=== PATIENT | male | born 1950 | race Caucasian/White ===

== ENCOUNTER 2019-08-15 04:37 | Inpatient (IN) | payer MEDICARE, OTHER ==
[~2019-08-15] VITALS: Ht 163 cm; Wt 82.8 kg
[~2019-08-15 04:37] MED LIST: ALPR0.5T7 PO; ESCI10TA55 PO; LEVO500T2 PO; METO50TA15 PO; PANT40TA3 PO; SERT50TA9 PO; SIMV40TA25 PO; TRZ50T PO
[2019-08-15] MEDS ORDERED: LACTATED RINGERS 1,000 ML IV ONE ×2 (04:44→06:58)
[2019-08-15] MEDS ORDERED: ACETAMINOPHEN 500 MG TAB (TYLENOL) PO PRN ×2 (04:45→08:30)
[2019-08-15 04:53] LABS: BASOPHILS % (AUTO) 0 % (0-10); EOSINOPHILS # (AUTO) 0.2 10^3/uL (0.0-0.3); EOSINOPHILS % (AUTO) 2 % (0-10); HEMATOCRIT 42 % (40-54); HEMOGLOBIN 14.1 G/DL (13.3-17.7); LYMPHOCYTES # (AUTO) 1.1 X 10^3 (1.0-4.0); LYMPHOCYTES % (AUTO) 10 % (12-44); MEAN CORPUSCULAR HEMOGLOBIN 31 PG (25-34); MEAN CORPUSCULAR HGB CONC 33 G/DL (32-36); MEAN CORPUSCULAR VOLUME 94 FL (80-99); MEAN PLATELET VOLUME 11.4 FL (7.4-10.4); MONOCYTES # (AUTO) 0.7 X 10^3 (0.0-1.0); MONOCYTES % (AUTO) 7 % (0-12); NEUTROPHILS # (AUTO) 8.2 X 10^3 (1.8-7.8); NEUTROPHILS % (AUTO) 81 % (42-75); PLATELET COUNT 139 10^3/uL (130-400); WHITE BLOOD COUNT 10.2 10^3/uL (4.3-11.0)
[2019-08-15 05:05] LABS: PROTHROMBIN TIME PATIENT 13.6 SEC (12.2-14.7)
[2019-08-15 05:12] LABS: ALANINE AMINOTRANSFERASE 22 U/L (0-55); ALBUMIN 3.9 GM/DL (3.2-4.5); ALKALINE PHOSPHATASE 95 U/L (40-136); BILIRUBIN,TOTAL 0.6 MG/DL (0.1-1.0); BUN/CREATININE RATIO 19; CARBON DIOXIDE 25 MMOL/L (21-32); CHLORIDE 105 MMOL/L (98-107); CREATININE SERUM 0.95 MG/DL (0.60-1.30); GFR ESTIMATED > 60; GLUCOSE 149 MG/DL (70-105); POTASSIUM 3.8 MMOL/L (3.6-5.0); SODIUM 141 MMOL/L (135-145)
--- NOTE | 2019-08-15 06:25 | NUR ---
VO FROM DR BARON TO NOT START IV
--- NOTE | 2019-08-15 06:26 | Diagnostic Imaging Report ---
INDICATION: Shortness of breath. Comparison is made with prior examination from 05/16/2017. FINDINGS: The heart size is normal. Mediastinum is unremarkable. There is no pleural effusion, pneumothorax or pneumonia. IMPRESSION: No acute cardiopulmonary abnormality Dictated by: Dictated on workstation # [id number]
--- NOTE | 2019-08-15 06:29 | ED General ---
General Chief Complaint: Respiratory Problems Stated Complaint: SOA Nursing Triage Note: brought in by [facility] for chills, cough, soa Nursing Sepsis Screen: Possible Severe Sepsis Risk Source of Information: Patient, EMS Exam Limitations: No Limitations History of Present Illness Date Seen by Provider: Aug 15, 2019 Time Seen by Provider: 04:46 Initial Comments Here chills, cough and shortness of air the last hour and a half. EMS summons due to shortness of breath. They noted that his O2 saturations were 88% on room air. Improved with high flow O2. Noted to be tachycardic with shaking chills. He is febrile. Reports that he's had a cough for the last few weeks and was seen by his provider last Friday. Thought to have sinusitis at that time but is not on antibiotics. Timing/Duration: 1-3 Hours, Getting Worse, Other (cough for 2 weeks) Severity: Moderate, Severe Associated Systoms: No Chest Pain; Cough, Fever/Chills; No Nausea/Vomiting; Shortness of Air, Weakness Allergies and Home Medications Allergies Coded Allergies: No Known Drug Allergies (Unverified , 05/16/17) Home Medications Metoprolol Tartrate 50 Mg Tablet, 50 MG PO DAILY, (Reported) Simvastatin 40 Mg Tablet, 40 MG PO HS, (Reported) Patient Home Medication List Home Medication List Reviewed: Yes Review of Systems Review of Systems Constitutional: see HPI, chills, fever EENTM: nose congestion; No throat pain Respiratory: cough, short of breath; No wheezing Cardiovascular: No chest pain, No edema Gastrointestinal: No nausea, No vomiting Genitourinary: no symptoms reported Musculoskeletal: no symptoms reported Skin: no symptoms reported Psychiatric/Neurological: No Symptoms Reported All Other Systems Reviewed Negative Unless Noted: Yes Past Gtnchhw-Iuwfzl-Zjfqgr Hx Past Med/Social Hx: Reviewed Nursing Past Med/Soc Hx Patient Social History Alcohol Use: Denies Use Recreational Drug Use: No Smoking Status: Former Smoker Former Smoker, Quit: Jul 07, 2014 2nd Hand Smoke Exposure: No Recent Foreign Travel: No Contact w/Someone Who Travel: No Recent Infectious Disease Expo: No Recent Hopitalizations: No Physical Abuse: No Sexual Abuse: No Mistreated: No Fear: No Immunizations Up To Date Tetanus Booster (TDap): Unknown Seasonal Allergies Seasonal Allergies: No Past Medical History Surgeries: No Respiratory: No Cardiac: Yes High Cholesterol, Hypertension Neurological: No Reproductive Disorders: No Sexually Transmitted Disease: No HIV/AIDS: No Genitourinary: No Gastrointestinal: Yes Gastroesophageal Reflux Musculoskeletal: No Endocrine: No HEENT: Yes Cataract Hearing Impairment: Hard of Hearing Cancer: No Psychosocial: Yes Anxiety Integumentary: No Blood Disorders: No Family Medical History Reviewed Nursing Family Hx No Pertinent Family Hx Physical Exam-Suspected Sepsis Physical Exam Vital Signs Vital Signs - First Documented Capillary Refill : Less Than 3 Seconds Blood Pressure Mean: 108 Height, Weight, BMI Height: 5'6" Weight: 162lbs. 3.0oz. [id number]; 30.00 BMI Method:Stated General Appearance: WD/WN, Mild Distress HEENT: PERRL/EOMI, Pharynx Normal Neck: Non Tender, Supple Respiratory: Lungs Clear, No Accessory Muscle Use, Other (tachypnea) Cardiovascular: No Murmur, Tachycardia Gastrointestinal: Non Tender, Soft Back: Normal Inspection, No CVA Tenderness, No Vertebral Tenderness Extremity: Normal Inspection, Normal Range of Motion Neurologic/Psychiatric: Alert, Oriented x3, Other (intermittent rigors shaking) Skin: warm/dry Focused Exam Lactate Level 08/15/19 04:40: Lactic Acid Level 3.33*H Lactic Acid Level Laboratory Tests Test 08/15/19 04:40 Lactic Acid Level 3.33 MMOL/L (0.50-2.00) *H Progress/Results/Core Measures Suspected Sepsis Recent Fever Within 48 Hours: Yes Infection Criteria Present: Suspected New Infection New/Unexplained Altered Menta: No Sepsis Screen: Possible Severe Sepsis Risk SIRS Temperature: Pulse: 117 Respiratory Rate: 29 Laboratory Tests 08/15/19 04:40: White Blood Count 10.2 Blood Pressure 144 /91 Mean: 108 08/15/19 04:40: Lactic Acid Level 3.33*H Laboratory Tests 08/15/19 04:40: Creatinine 0.95, INR Comment 1.0, Platelet Count 139, Total Bilirubin 0.6 Results/Orders Lab Results Laboratory Tests Test 08/15/19 04:40 Range/Units White Blood Count 10.2 4.3-11.0 10^3/uL Red Blood Count 4.51 4.35-5.85 10^6/uL Hemoglobin 14.1 13.3-17.7 G/DL Hematocrit 42 40-54 % Mean Corpuscular Volume 94 80-99 FL Mean Corpuscular Hemoglobin 31 25-34 PG Mean Corpuscular Hemoglobin Concent 33 32-36 G/DL Red Cell Distribution Width 14.0 10.0-14.5 % Platelet Count 139 130-400 10^3/uL Mean Platelet Volume 11.4 H 7.4-10.4 FL Neutrophils (%) (Auto) 81 H 42-75 % Lymphocytes (%) (Auto) 10 L 12-44 % Monocytes (%) (Auto) 7 0-12 % Eosinophils (%) (Auto) 2 0-10 % Basophils (%) (Auto) 0 0-10 % Neutrophils # (Auto) 8.2 H 1.8-7.8 X 10^3 Lymphocytes # (Auto) 1.1 1.0-4.0 X 10^3 Monocytes # (Auto) 0.7 0.0-1.0 X 10^3 Eosinophils # (Auto) 0.2 0.0-0.3 10^3/uL Basophils # (Auto) 0.0 0.0-0.1 10^3/uL Prothrombin Time 13.6 12.2-14.7 SEC INR Comment 1.0 0.8-1.4 Activated Partial Thromboplast Time 27 24-35 SEC Sodium Level 141 135-145 MMOL/L Potassium Level 3.8 3.6-5.0 MMOL/L Chloride Level 105 98-107 MMOL/L Carbon Dioxide Level 25 21-32 MMOL/L Anion Gap 11 5-14 MMOL/L Blood Urea Nitrogen 18 7-18 MG/DL Creatinine 0.95 0.60-1.30 MG/DL Estimat Glomerular Filtration Rate > 60 BUN/Creatinine Ratio 19 Glucose Level 149 H 70-105 MG/DL Lactic Acid Level 3.33 *H 0.50-2.00 MMOL/L Calcium Level 9.0 8.5-10.1 MG/DL Corrected Calcium 9.1 8.5-10.1 MG/DL Total Bilirubin 0.6 0.1-1.0 MG/DL Aspartate Amino Transf (AST/SGOT) 16 5-34 U/L Alanine Aminotransferase (ALT/SGPT) 22 0-55 U/L Alkaline Phosphatase 95 40-136 U/L Total Protein 7.0 6.4-8.2 GM/DL Albumin 3.9 3.2-4.5 GM/DL Micro Results Microbiology 08/15/19 Influenza Types A,B Antigen (ANUP) - Final, Complete My Orders Orders - ROBERTO BARON MD Cbc With Automated Diff (08/15/19 04:44) Comprehensive Metabolic Panel (08/15/19 04:44) Blood Culture (08/15/19 04:44) Sputum Culture (08/15/19 04:44) Urinalysis (08/15/19 04:44) Urine Culture (08/15/19 04:44) Protime With Inr (08/15/19 04:44) Partial Thromboplastin Time (08/15/19 04:44) Chest 1 View, Ap/Pa Only (08/15/19 04:44) Acetaminophen Tablet (Tylenol Tablet) (08/15/19 04:45) Ed Iv/Invasive Line Start (08/15/19 04:44) Ekg Tracing (08/15/19 04:44) Vital Signs Adult Sepsis Patie Q15M (08/15/19 04:44) O2 (08/15/19 04:44) Remove Rings In Anticipation O (08/15/19 04:44) Lactic Acid Analyzer (08/15/19 04:44) Influenza A And B Antigens (08/15/19 04:44) Lactated Ringers (Lr 1000 Ml Iv Solution (08/15/19 04:44) Ceftriaxone For Iv Use (Rocephin For I (08/15/19 06:30) Azithromycin Injection (Zithromax Inject (08/15/19 06:30) Medications Given in ED Current Medications Medications Dose Ordered Sig/Brandon Route Start Time Stop Time Status Last Admin Dose Admin Acetaminophen 1,000 mg ONCE PRN PO 08/15/19 04:45 08/15/19 04:51 DC 08/15/19 04:51 1,000 MG Azithromycin 500 mg/Sodium Chloride 250 ml @ 250 mls/hr ONCE ONCE IV 08/15/19 06:30 08/15/19 07:29 08/15/19 06:47 250 MLS/HR Ceftriaxone Sodium 1000 mg/ Sterile Water 10 ml @ 200 mls/hr ONCE ONCE IV 08/15/19 06:30 08/15/19 06:32 DC 08/15/19 06:47 200 MLS/HR Lactated Ringer's 1,000 ml @ 0 mls/hr Q0M ONCE IV 08/15/19 04:44 08/15/19 04:46 DC 08/15/19 04:50 0 MLS/HR Vital Signs/I&O 08/15/19 08/15/19 08/15/19 08/15/19 04:39 04:39 04:51 05:06 Temp 38.9 38.9 38.6 Pulse 128 117 Resp 20 29 B/P (MAP) 161/107 (125) 144/91 Pulse Ox 97 97 97 O2 Delivery Nasal Cannula Nasal Cannula Nasal Cannula O2 Flow Rate 4.00 4.00 4.00 08/15/19 06:50 Temp 38.4 Pulse 112 Resp 22 B/P (MAP) 115/65 (82) Pulse Ox 98 O2 Delivery Nasal Cannula O2 Flow Rate 4.00 Capillary Refill : Less Than 3 Seconds Blood Pressure Mean: 108 Progress Note : Progress Note Seen and evaluated. Sepsis protocol initiated. LR 1 L bolus and Tylenol 1 g by mouth. Monitor patient. 0630: Evaluation as above. Lactic acid is elevated at 3.3. Chest x-ray read as negative but I do have concerns about right lower lobe pneumonia especially in the setting of temperature of 102 100 shaking with difficulty breathing, tachycardia and hypoxia. He is requiring 3-4 L of oxygen via nasal cannula to keep sats greater than 92%. Rocephin 1 g IV and azithromycin 500 mg IV ordered. To be admitted. 0650: I did discuss the case with Dr. Angel Metz, on-call for Dr. Roque. He accepts patient for admission, inpatient status. We will give another liter of LR now. Patient's lactic acid was elevated at 3.3. While he meets sepsis a do not believe he re quires high-volume fluid resuscitation. That being said his heart rate still is greater than 100 so we will give the second liter of fluid as I do believe he needs that. We will continue gentle hydration and antibiotics. Patient is feeling better now after Tylenol administration. Radiology read x-ray as negative but I do have concerns about right lower lobe pneumonia and we will tr eat as such due to clinical concerns. Findings concerns discussed with patient and family who agree with the plan. Diagnostic Imaging Diagonstic Imaging: Xray Plain Films/CT/US/NM/MRI: chest Comments [facility]. [place], [place] NAME: HEYDI ALY [facility] REC#: [id number] PT STATUS: REG ER : 1950 PHYSICIAN: ROBERTO BARON MD ADMIT DATE: 08/15/19/ER Draft Date of Exam:08/15/19 CHEST 1 VIEW, AP/PA ONLY INDICATION: Shortness of breath. Comparison is made with prior examination from 05/16/2017. FINDINGS: The heart size is normal. Mediastinum is unremarkable. There is no pleural effusion, pneumothorax or pneumonia. IMPRESSION: No acute cardiopulmonary abnormality Dictated on workstation # [id number] Dict: 08/15/19622 Trans: 08/15/19 0626 JAMES [id number] Interpreted by: UBALDO REYNA MD Electronically signed by: Reviewed: Reviewed by Me Departure Communication (Admissions) Time/Spoke to Admitting Phy: 06:49 Impression Primary Impression: Right lower lobe pneumonia Qualified Codes: J18.1 - Lobar pneumonia, unspecified organism Additional Impression: Sepsis Qualified Codes: A41.9 - Sepsis, unspecified organism Disposition: ADMITTED INPATIENT Condition: Stable Admissions Decision to Admit Reason: Admit from ER (General) Decision to Admit/Date: Aug 15, 2019 Time/Decision to Admit Time: 06:30 Departure-Patient Inst. Referrals: BERTRAND ROQUE DO (PCP/Family) Primary Care Physician ROBERTO BARON MD Aug 15, 2019 06:29
[2019-08-15] MEDS ORDERED: cefTRIAXone FOR IV USE 1,000 MG in WATER (STERILE) FOR INJECTION 10 ML IV ONE (06:30)
[2019-08-15] MEDS ORDERED: AZITHROMYCIN INJECTION 500 MG in NS (IVPB) 250 ML IV ONE (06:30)
[2019-08-15 06:50] VITALS: BP 115/65
--- NOTE | 2019-08-15 07:15 | NUR ---
02 TURNED DOWN TO 2 L PER NC PER [address] RODRIGUEZ ORDER.
--- NOTE | 2019-08-15 07:23 | NUR ---
CALLED TO GIVE REPORT VISCOSITY INSPECTOR VENKATA WILL HAVE NURSE CALL BACK.
[2019-08-15 08:00] VITALS: BP 132/70
[2019-08-15] MEDS: LACTATED RINGERS 1,000 ML IV SCH ×2 (10:28→18:50)
--- NOTE | 2019-08-15 11:39 | History & Physical ---
History of Present Illness History of Present Illness Reason for visit/HPI 69 yo M admitted for sepsis due to RLL pneumonia. Significant other reports he had been coughing for last least a month. Patient noted the rigors/chills around 330am. He put his clothes on to warm up. Significant other noted he was clammy and shaking bad so she called EMS. He was placed on oxygen and this brought him from 88% into the 90s. He endorses a fever and was found to be above 38C in the ER. Lactic acid was 3.3- He has received 2L lactated ringers. Blood pressure is not hypotensive. Pulse was >100. He is coughing up phlegm but is not putting forth a good cough effort. Patient was admitted to 4th floor to further evaluation. He has received rocephin and azithromycin. I agree with ER that RLL pneumonia is present on CXR. He has history of anxiety, GERD, htn. He quit smoking at least 3 years ago. He is retired from the [employer] and then retired from [employer]. Date of Admission Aug 15, 2019 at 06:50 Date Seen by a Provider: Aug 15, 2019 Time Seen by a Provider: 11:20 I consulted on this patient on 08/15/19 11:34 Attending Physician Christopher Dumas DO Admitting Physician Christopher Dumas DO Consult Allergies and Home Medications Allergies Coded Allergies: No Known Drug Allergies (Unverified , 05/16/17) Home Medications Metoprolol Tartrate 50 Mg Tablet, 50 MG PO DAILY, (Reported) Simvastatin 40 Mg Tablet, 40 MG PO HS, (Reported) Patient Home Medication List Home Medication List Reviewed: Yes Past Hvfzcfv-Hmwqcg-Lpabgs Hx Patient Social History Employed/Student: retired Alcohol Use: Denies Use Recreational Drug Use: No Smoking Status: Former Smoker Former Smoker, Quit: Jul 07, 2014 2nd Hand Smoke Exposure: No Recent Foreign Travel: No Contact w/other who traveled: No Recent Hopitalizations: No Recent Infectious Disease Expo: No Immunizations Up To Date Tetanus Booster (TDap): Unknown Seasonal Allergies Seasonal Allergies: No Surgeries No Respiratory No Cardiovascular Yes High Cholesterol, Hypertension Neurological No Reproductive System Hx Reproductive Disorders: No Sexually Transmitted Disease: No HIV/AIDS: No Genitourinary No Gastrointestinal Yes Gastroesophageal Reflux Musculoskeletal No Endocrine History of Endocrine Disorders: No HEENT History of HEENT Disorders: Yes HEENT Disorders: Cataract Hearing Impairment: Hard of Hearing Cancer No Psychosocial History of Psychiatric Problem: Yes Behavioral Health Disorders: Anxiety Integumentary History of Skin or Integumenta: No Blood Transfusions History of Blood Disorders: No Family Medical History Significant Family History: No Pertinent Family Hx Review of Systems Review of Systems General: Chills, Fatigue HEENT: Head Aches; No Visual Changes, No Ear Pain, No Dysphasia, No Sinus Congestion, No Post Nasal Drip, No Sore Throat Pulmonary: Dyspnea, Cough Cardiovascular: No: Chest Pain, Palpitations, Orthopnea Gastrointestinal: No: Nausea, Vomiting, Abdominal Pain Genitourinary: No Dysuria Neurological: Weakness All Other Systems Reviewed All Other Systems Reviewed: Yes Physical Exam Vital Signs Vital Signs - First Documented Capillary Refill : Less Than 3 Seconds Vital Signs Date Time Temp Pulse Resp B/P (MAP) Pulse Ox O2 Delivery O2 Flow Rate FiO2 08/15/19 08:10 98 Nasal Cannula 2.00 08/15/19 08:00 37.0 101 20 132/70 (90) 98 Room Air 08/15/19 07:53 37.6 100 18 111/71 97 Nasal Cannula 2.00 08/15/19 06:50 38.4 112 22 115/65 (82) 98 Nasal Cannula 4.00 08/15/19 05:06 38.6 117 29 144/91 97 Nasal Cannula 4.00 08/15/19 04:51 38.9 08/15/19 04:39 97 Nasal Cannula 4.00 08/15/19 04:39 38.9 128 20 161/107 (125) 97 Nasal Cannula 4.00 I & O 08/15/19 07:00 Intake Total 1010 ml Balance 1010 ml Height, Weight, BMI Height: 5'6" Weight: 162lbs. 3.0oz. 73.280206ns; 30.00 BMI Method:Stated General Appearance: WD/WN, Mild Distress HEENT: PERRL/EOMI Neck: Non Tender, Supple Respiratory: Chest Non Tender, No Accessory Muscle Use, Decreased Breath Sounds (left base > right base) Cardiovascular: Regular Rate, Rhythm, No Edema Gastrointestinal: Non Tender, Soft Rectal: Deferred Back: Normal Inspection Extremity: Normal Capillary Refill, Normal Inspection, Non Tender Neurologic/Psychiatric: Alert, Oriented x3, No Motor/Sensory Deficits, Normal Mood/Affect Skin: Warm/Dry Assessment/Plan Assessment/Plan Admission Dx acute hypoxic respiratory distress due to RLL Pneumonia Sepsis Admission Status: Inpatient Order (span 2 midnights) Reason for Inpatient Admission: acute hypoxic respiratory distress due to RLL Pneumonia resulting in sepsis- appears this has been brewing for awhile- as he has had a cough and respiratory complaints for over a month. Expect him to be inpatient for over 2 midnights in getting him off oxygen and correcting his hypoxic respiratory distress. Prior to discharge- I would like him to be fever free [id number] while on oral antibiotics. Assessment and Plan 08/15/2019- admitted - continue rocephin, azithromycin for his pneumonia -continue IVF for sepsis, lactic acidosis -maintain oxygen saturation >92% as the hypoxia is contributing to his lactic acidosis. -trending lactic acid. -recheck labs in AM. DVT ppx- lovenox Dispo: expect him to improve daily. Problems: (1) Sepsis due to pneumonia (2) Acute respiratory failure with hypoxia Assessment & Plan: MAT protocol (3) Right lower lobe pneumonia Qualifiers: Qualified Codes: J18.1 - Lobar pneumonia, unspecified organism (4) Sepsis Qualifiers: Qualified Codes: A41.9 - Sepsis, unspecified organism (5) Hyperlipidemia Assessment & Plan: continue statin (6) Lactic acidosis (7) HTN (hypertension) Qualifiers: Qualified Codes: I10 - Essential (primary) hypertension Assessment & Plan: continue metoprolol- monitor blood pressure though as he has sepsis- so we will not pursue tight blood pressure control. Clinical Quality Measures DVT/VTE Risk/Contraindication: Risk Factor Score Per Nursin RFS Level Per Nursing on Admit: 4+=Very High GUSTAVO SOTO MD Aug 15, 2019 11:39
[2019-08-15 11:49] VITALS: BP 132/70
[2019-08-15 12:00] VITALS: BP 128/64
[2019-08-15] MEDS ORDERED: RT-ALBUTEROL/IPRATROPIUM 3 ML (DUONEB) VIAL INH PRN (12:00)
[2019-08-15] MEDS: meTOprolol TARTRATE 50 MG (LOPRESSOR) TAB PO SCH (12:40)
[2019-08-15] MEDS: ENOXAPARIN 40 MG/0.4 ML (LOVENOX) SYR SC SCH (12:40)
[2019-08-15] MEDS ORDERED: FLU QUADRIvalent (5+ YOA) 2019-2020 (AFLURIA) 0.5 ML IM ONE (13:30)
[2019-08-15] MEDS: RT-ALBUTEROL/IPRATROPIUM 3 ML (DUONEB) VIAL INH SCH ×2 (15:45→21:23)
[2019-08-15 16:00] VITALS: BP 131/70
[2019-08-15 20:00] VITALS: BP 150/69
[2019-08-15] MEDS: SIMvastatin 40 MG (ZOCOR) TAB PO SCH (21:00)
[2019-08-16] VITALS (7 sets, daily range): BP systolic 122–166; BP diastolic 64–87
[2019-08-16] MEDS: RT-ALBUTEROL/IPRATROPIUM 3 ML (DUONEB) VIAL INH SCH ×5 (02:00→21:22)
[2019-08-16] MEDS: cefTRIAXone 1,000 MG/SWFI 10 ML IV PUSH IV SCH ×2 (07:54)
[2019-08-16 07:55] LABS: BASOPHILS % (AUTO) 0 % (0-10); EOSINOPHILS # (AUTO) 0.1 10^3/uL (0.0-0.3); EOSINOPHILS % (AUTO) 1 % (0-10); HEMATOCRIT 39 % (40-54); HEMOGLOBIN 12.8 G/DL (13.3-17.7); LYMPHOCYTES % (AUTO) 15 % (12-44); MEAN CORPUSCULAR HEMOGLOBIN 31 PG (25-34); MEAN CORPUSCULAR HGB CONC 33 G/DL (32-36); MEAN CORPUSCULAR VOLUME 95 FL (80-99); MEAN PLATELET VOLUME 11.2 FL (7.4-10.4); MONOCYTES # (AUTO) 0.5 X 10^3 (0.0-1.0); MONOCYTES % (AUTO) 8 % (0-12); NEUTROPHILS # (AUTO) 4.9 X 10^3 (1.8-7.8); NEUTROPHILS % (AUTO) 75 % (42-75); PLATELET COUNT 129 10^3/uL (130-400); RED CELL DISTRIBUTION WIDTH 14.3 % (10.0-14.5); WHITE BLOOD COUNT 6.6 10^3/uL (4.3-11.0)
--- NOTE | 2019-08-16 07:59 | NUR ---
LR stopped during ceftrioxone administration. Pt flushed before and after med given
[2019-08-16] MEDS: LACTATED RINGERS 1,000 ML IV SCH ×4 (08:03→19:53)
--- NOTE | 2019-08-16 08:03 | Progress Note ---
Subjective Time Seen by a Provider: 08:01 Subjective/Events-last exam Patient feeling better and doing better. Patient not short of the of this morning. Lab tests not on chart yet Focused Exam Lactate Level 08/15/19 07:06: Lactic Acid Level 2.23*H 08/15/19 09:14: Lactic Acid Level 2.37*H 08/15/19 11:18: Lactic Acid Level 2.69*H Objective Exam Vital Signs Date Time Temp Pulse Resp B/P (MAP) Pulse Ox O2 Delivery O2 Flow Rate FiO2 08/16/19 06:35 36.6 78 161/87 (111) 18 Room Air 08/16/19 04:00 36.7 92 18 122/74 (90) 91 Room Air 4.00 4.00 08/16/19 02:01 91 Room Air 08/16/19 00:00 36.7 92 18 122/74 (90) 94 Room Air 08/15/19 21:23 98 Nasal Cannula 4.00 08/15/19 21:13 36.6 08/15/19 20:43 36.6 08/15/19 20:00 36.6 89 18 150/69 (96) 98 Nasal Cannula 4.00 08/15/19 20:00 98 Nasal Cannula 4.00 08/15/19 16:00 36.4 88 20 131/70 (90) 100 Nasal Cannula 4.00 08/15/19 15:50 96 Nasal Cannula 4.00 08/15/19 12:00 36.8 99 20 128/64 (85) 97 Room Air 08/15/19 11:49 37.0 101 98 08/15/19 08:10 98 Nasal Cannula 2.00 I & O 08/16/19 07:00 Intake Total 2850 ml Output Total 2775 ml Balance 75 ml Capillary Refill : Less Than 3 Seconds General Appearance: No Apparent Distress, WD/WN HEENT: Normal ENT Inspection Neck: Full Range of Motion, Non Tender Respiratory: Lungs Clear, No Accessory Muscle Use, No Respiratory Distress Cardiovascular: Regular Rate, Rhythm, No Murmur Gastrointestinal: non tender, soft Results Lab Laboratory Tests 08/16/19 07:44 Laboratory Tests 08/15/19 09:14: Lactic Acid Level 2.37*H 08/15/19 11:18: Lactic Acid Level 2.69*H 08/16/19 07:44: White Blood Count 6.6, Red Blood Count 4.12L, Hemoglobin 12.8L, Hematocrit 39L, Mean Corpuscular Volume 95, Mean Corpuscular Hemoglobin 31, Mean Corpuscular Hemoglobin Concent 33, Red Cell Distribution Width 14.3, Platelet Count 129L, M israel Platelet Volume 11.2H, Neutrophils (%) (Auto) 75, Lymphocytes (%) (Auto) 15, Monocytes (%) (Auto) 8, Eosinophils (%) (Auto) 1, Basophils (%) (Auto) 0, Neutrophils # (Auto) 4.9, Lymphocytes # (Auto) 1.0, Monocytes # (Auto) 0.5, Eosinophils # (Auto) 0.1, Basophils # (Auto) 0.0 Microbiology 08/15/19 Influenza Types A,B Antigen (ANUP) - Final, Complete Assessment/Plan Assessment/Plan Assess & Plan/Chief Complaint Right lower lobe pneumonia. Sepsis. Patient improving. Elevated lactic acid Clinical Quality Measures DVT/VTE Risk/Contraindication: Risk Factor Score Per Nursin RFS Level Per Nursing on Admit: 4+=Very High BERTRAND ROQUE DO Aug 16, 2019 08:03
[2019-08-16 08:16] LABS: BILIRUBIN,TOTAL 0.7 MG/DL (0.1-1.0); BUN/CREATININE RATIO 11; CARBON DIOXIDE 24 MMOL/L (21-32); CHLORIDE 107 MMOL/L (98-107); GFR ESTIMATED > 60; GLUCOSE 126 MG/DL (70-105); POTASSIUM 3.8 MMOL/L (3.6-5.0); SODIUM 139 MMOL/L (135-145)
[2019-08-16 08:17] LABS: ALANINE AMINOTRANSFERASE 16 U/L (0-55); ALBUMIN 3.8 GM/DL (3.2-4.5); ALKALINE PHOSPHATASE 72 U/L (40-136); TOTAL PROTEIN 6.8 GM/DL (6.4-8.2)
[2019-08-16] MEDS: meTOprolol TARTRATE 50 MG (LOPRESSOR) TAB PO SCH (08:45)
[2019-08-16] MEDS ORDERED: AZITHROMYCIN 500 MG/NS 250 ML IVPB IV SCH ×2 (09:00)
--- NOTE | 2019-08-16 09:21 | Diagnostic Imaging Report ---
INDICATION: Pneumonia. Comparison is made with prior examination from 08/15/2019 FINDINGS: Heart size is normal. Mediastinum is unremarkable. There is patchy right basilar infiltrate. There is no pleural effusion or pneumothorax. IMPRESSION: Questionable patchy right basilar infiltrate, otherwise unremarkable. Dictated by: Dictated on workstation # [id number]
--- NOTE | 2019-08-16 10:18 | NUR ---
patient does not remember RT waking him up in the middle of the night; patient and his states that when patient is woke up he is disoriented and does not remember anything that goes on at that time. Make sure patient gets his 0300 breathing tx's per patients request.
--- NOTE | 2019-08-16 10:40 | Pulmonary Consultation ---
History of Present Illness History of Present Illness Date Seen by Provider: Aug 16, 2019 Time Seen by Provider: 10:40 Date of Admission History of Present Illness 69yo yo presented to ED secondary to worsening SOB, productive cough fever, and chills. While in the ED pt was noted to have hypoxia with Sp02 88% on RA. SOB and coughing has been progressive over the last 3wks. PT was admitted to 4th floor with rocephin and azithromycin. I am consulted for pulmonary management. Allergies and Home Medications Allergies Coded Allergies: No Known Drug Allergies (Unverified , 05/16/17) Home Medications Escitalopram Oxalate 10 Mg Tablet, 10 MG PO DAILY, (Reported) Metoprolol Tartrate 50 Mg Tablet, 50 MG PO DAILY, (Reported) Pantoprazole Sodium 40 Mg Tablet.dr, 40 MG PO DAILY, (Reported) Simvastatin 40 Mg Tablet, 40 MG PO HS, (Reported) Past Lzejqyq-Hmzayh-Xzzoqk Hx Past Med/Social Hx: Reviewed Nursing Past Med/Soc Hx Patient Social History Alcohol Use: Denies Use Recreational Drug Use: No Smoking Status: Former Smoker Former Smoker, Quit: Jul 07, 2014 2nd Hand Smoke Exposure: No Recent Foreign Travel: No Contact w/Someone Who Travel: No Recent Infectious Disease Expo: No Recent Hopitalizations: No Physical Abuse: No Sexual Abuse: No Mistreated: No Fear: No Immunizations Up To Date Tetanus Booster (TDap): Unknown Seasonal Allergies Seasonal Allergies: No Past Medical History Surgeries: No Respiratory: No Cardiac: Yes High Cholesterol, Hypertension Neurological: No Reproductive Disorders: No Sexually Transmitted Disease: No HIV/AIDS: No Genitourinary: No Gastrointestinal: Yes Gastroesophageal Reflux Musculoskeletal: No Endocrine: No HEENT: Yes Cataract Hearing Impairment: Hard of Hearing Cancer: No Psychosocial: Yes Anxiety Integumentary: No Blood Disorders: No Family Medical History Reviewed Nursing Family Hx No Pertinent Family Hx Review of Systems Time Seen by Provider: 12:16 Constitutional: Fever, Chills, Sweats, Weakness, Malaise, Other Eyes: No: Pain, Vision change, Conjunctivae inflammation, Eyelid inflammation, Other, Redness ENT: Nose congestion; No: Ear pain, Ear discharge, Nose pain, Nose discharge, Mouth pain, Mouth swelling, Throat pain, Throat swelling, Other Respiratory: Cough, Shortness of breath, SOB with excertion, Wheezing, Sputum; No: Hemoptysis Cardiovascular: Palpitations, Paroxysmal Noc. Dyspnea; No: Chest Pain, Orthopnea, Edema, Lt Headedness, Other Gastrointestinal: No: Nausea, Vomiting, Abdominal Pain, Diarrhea, Constipation, Melena, Hematochezia, Other Sepsis Event Evaluation Height, Weight, BMI Height: 5'6" Weight: 162lbs. 3.0oz. 73.668890oj; 30.00 BMI Method:Stated Exam Exam Vital Signs Date Time Temp Pulse Resp B/P (MAP) Pulse Ox O2 Delivery O2 Flow Rate FiO2 08/16/19 10:03 98 Room Air 08/16/19 08:00 98 Nasal Cannula 4.00 08/16/19 08:00 36.0 94 18 156/79 (104) 96 Nasal Cannula 4.00 08/16/19 06:35 36.6 78 161/87 (111) 18 Room Air 08/16/19 04:00 36.7 92 18 122/74 (90) 91 Room Air 4.00 4.00 08/16/19 02:01 91 Room Air 08/16/19 00:00 36.7 92 18 122/74 (90) 94 Room Air 08/15/19 21:23 98 Nasal Cannula 4.00 08/15/19 21:13 36.6 08/15/19 20:43 36.6 08/15/19 20:00 36.6 89 18 150/69 (96) 98 Nasal Cannula 4.00 08/15/19 20:00 98 Nasal Cannula 4.00 08/15/19 16:00 36.4 88 20 131/70 (90) 100 Nasal Cannula 4.00 08/15/19 15:50 96 Nasal Cannula 4.00 08/15/19 12:00 36.8 99 20 128/64 (85) 97 Room Air 08/15/19 11:49 37.0 101 98 I & O 08/16/19 07:00 Intake Total 2850 ml Output Total 2775 ml Balance 75 ml Height & Weight Height: 5'6" Weight: 162lbs. 3.0oz. 73.422133da; 30.00 BMI Method:Stated General Appearance: No Apparent Distress, WD/WN HEENT: Normal ENT Inspection Neck: Full Range of Motion, Non Tender Respiratory: Lungs Clear, No Accessory Muscle Use, No Respiratory Distress Cardiovascular: Regular Rate, Rhythm, No Murmur Capillary Refill: Less Than 3 Seconds Gastrointestinal: non tender, soft Extremity: Normal Capillary Refill, Normal Inspection, Non Tender Neurologic/Psychiatric: Alert, Oriented x3, No Motor/Sensory Deficits, Normal Mood/Affect Skin: Warm/Dry Results Lab Laboratory Tests 08/15/19 04:40 08/16/19 07:44 Assessment/Plan Assessment/Plan RLL pneumonia -Rocephin and azithromycin -IVF -Check CT of chest Metabolic lactic acidosis -Increase IVF and give bolus -Recheck Quit smoking 3 yrs ago JULIA SÁNCHEZ DO Aug 16, 2019 10:40
[2019-08-16] MEDS ORDERED: LACTATED RINGERS 1,000 ML IV SCH (10:45)
[2019-08-16 11:02] LABS: MAGNESIUM 1.6 MG/DL (1.6-2.4); PHOSPHORUS 2.4 MG/DL (2.3-4.7)
[2019-08-16] MEDS ORDERED: LACTATED RINGERS 500 ML IV SCH (11:15)
[2019-08-16] MEDS: ENOXAPARIN 40 MG/0.4 ML (LOVENOX) SYR SC SCH (11:18)
--- NOTE | 2019-08-16 11:22 | NUR ---
LR 500mL bolus infusing
--- NOTE | 2019-08-16 11:57 | NUR ---
SPOKE WITH THE PT WELL GOING THRU THE EXT MED HISTORY TO COMPLETE THE MED REC. PT WAS ABLE TO TELL ME HOW/WHEN HE TAKES EACH MEDICATION AND THAT MATCHED DIRECTIONS AND FILL DATES IN THE EXT MED HISTORY. PT DENIES USING ANY OTC PRODUCTS.
[2019-08-16 13:34] LABS: BILIRUBIN,URINE NEGATIVE (NEGATIVE); CLARITY,URINE CLEAR; COLOR,URINE YELLOW; GLUCOSE, URINE (UA) NEGATIVE (NEGATIVE); KETONES,URINE NEGATIVE (NEGATIVE); LEUKOCYTE ESTERASE ,URINE NEGATIVE (NEGATIVE); NITRITE,URINE NEGATIVE (NEGATIVE); PROTEIN,URINE NEGATIVE (NEGATIVE)
[2019-08-16] MEDS ORDERED: IOHEXOL 350 MG/ML 100 ML (OMNIPAQUE 350) VIAL IV ONE (13:45)
[2019-08-16] MEDS ORDERED: NS 100 ML (IVPB) BAG IV ONE (13:45)
[2019-08-16] MEDS ORDERED: DIATRIZOATE MEGLUM/SODIUM 37% 120 ML (GASTROGRAFIN) PO ONE (13:45)
[2019-08-16 13:52] LABS: BACTERIA,URINE NEGATIVE /HPF; RBC,URINE RARE /HPF
--- NOTE | 2019-08-16 14:56 | Diagnostic Imaging Report ---
EXAMINATION: CT Chest, Abdomen and Pelvis with intravenous contrast. TECHNIQUE: Multiple contiguous axial images were obtained through the chest, abdomen and pelvis after the uneventful administration of intravenous contrast. All CT scans use one or more of the following dose optimizing techniques: automated exposure control, MA and/or KvP adjustment based on a patient size and exam type, or iterative reconstruction. HISTORY: Fever and chills. COMPARISON: 05/03/2016. FINDINGS: There is a tiny right pleural effusion with overlying atelectasis. There is a small amount of mucus in the trachea. No edema or pneumonia. Small area of scarring is seen in the right upper lobe. No pleural effusion. No pneumothorax. No suspicious nodules. Heart size is normal. No pericardial effusion. Aorta is normal in caliber. There is no axillary or supraclavicular lymphadenopathy. There is no mediastinal lymphadenopathy. Liver is mildly steatotic. There are few calcified granulomas in the liver. No suspicious liver lesions are seen. Previously seen hypoattenuating lesion is no longer apparent. There is no biliary ductal dilation. Gallbladder is normal. Pancreas is normal. There are calcified granulomas in the spleen. Adrenal glands are normal. The kidneys are normal. There is no hydronephrosis. Urinary bladder is normal. There are no dilated loops of large or small bowel. No obstruction or inflammation. No free fluid or air. No abdominal or pelvic lymphadenopathy. Aorta is normal in caliber without aneurysm. There is a fat-containing left inguinal hernia. There are no suspicious osseus lesions. IMPRESSION: 1. Tiny right pleural effusion with overlying atelectasis. 2. Steatotic liver. Dictated by: Dictated on workstation # [id number]
--- NOTE | 2019-08-16 16:57 | NUR ---
CM/SS visited with patient for social service consult. The patient and his significant other were present in the room. They requested a social service assistant to help complete an advanced directive and living will. CM/SS discussed the differences for the advanced directing, living will, and financial POA. The patient and his spouse verbalized understanding. An information sheet was also provided to the patient on advanced directives. CM/GORGE completed the advanced directive and living will with the patient. TUSHAR/GORGE had ARMANDO Guevara as a witness. This TUSHAR/GORGE and Sallie signed and dated as witnesses. TUSHAR/SS gave the patient the original copy and 3 additional copies. A copy was put in the patients chart. There were no other needs at this time.
[2019-08-16] MEDS: SIMvastatin 40 MG (ZOCOR) TAB PO SCH (19:53)
[2019-08-17] VITALS: BP 145/76
[2019-08-17] MEDS: RT-ALBUTEROL/IPRATROPIUM 3 ML (DUONEB) VIAL INH SCH ×2 (02:54→09:19)
[2019-08-17 04:00] VITALS: BP 158/73
[2019-08-17] MEDS: LACTATED RINGERS 1,000 ML IV SCH (05:37)
[2019-08-17 05:49] LABS: BASOPHILS % (AUTO) 0 % (0-10); EOSINOPHILS # (AUTO) 0.1 10^3/uL (0.0-0.3); EOSINOPHILS % (AUTO) 2 % (0-10); HEMATOCRIT 35 % (40-54); HEMOGLOBIN 11.3 G/DL (13.3-17.7); LYMPHOCYTES # (AUTO) 1.2 X 10^3 (1.0-4.0); LYMPHOCYTES % (AUTO) 20 % (12-44); MEAN CORPUSCULAR HEMOGLOBIN 31 PG (25-34); MEAN CORPUSCULAR HGB CONC 33 G/DL (32-36); MEAN CORPUSCULAR VOLUME 96 FL (80-99); MONOCYTES # (AUTO) 0.5 X 10^3 (0.0-1.0); MONOCYTES % (AUTO) 9 % (0-12); NEUTROPHILS # (AUTO) 3.9 X 10^3 (1.8-7.8); NEUTROPHILS % (AUTO) 68 % (42-75); PLATELET COUNT 121 10^3/uL (130-400); RED CELL DISTRIBUTION WIDTH 14.2 % (10.0-14.5); WHITE BLOOD COUNT 5.6 10^3/uL (4.3-11.0)
[2019-08-17 06:09] LABS: ALANINE AMINOTRANSFERASE 18 U/L (0-55); ALBUMIN 3.4 GM/DL (3.2-4.5); ALKALINE PHOSPHATASE 59 U/L (40-136); BILIRUBIN,TOTAL 0.4 MG/DL (0.1-1.0); BUN/CREATININE RATIO 7; CALCIUM 8.6 MG/DL (8.5-10.1); CARBON DIOXIDE 23 MMOL/L (21-32); CHLORIDE 108 MMOL/L (98-107); CREATININE SERUM 0.73 MG/DL (0.60-1.30); GFR ESTIMATED > 60; GLUCOSE 116 MG/DL (70-105); POTASSIUM 3.7 MMOL/L (3.6-5.0); SODIUM 139 MMOL/L (135-145); TOTAL PROTEIN 6.1 GM/DL (6.4-8.2)
[2019-08-17 08:00] VITALS: BP 169/95
--- NOTE | 2019-08-17 08:38 | Progress Note ---
Subjective Time Seen by a Provider: 08:31 Subjective/Events-last exam Patient doing better. Patient feeling better. Patient able to walk without shortness of breath. Lactic acid 1 down to 1.6. CAT scan shows pleural effusion. White blood cell count within normal limits. Patient afebrile Focused Exam Lactate Level 08/15/19 11:18: Lactic Acid Level 2.69*H 08/16/19 08:20: Lactic Acid Level 3.38*H 08/16/19 10:25: Lactic Acid Level 1.61 Objective Exam Vital Signs Date Time Temp Pulse Resp B/P (MAP) Pulse Ox O2 Delivery O2 Flow Rate FiO2 08/17/19 08:06 98 Nasal Cannula 4.00 08/17/19 04:00 37.2 105 20 158/73 (101) 95 Room Air 08/17/19 02:53 94 Room Air 08/17/19 00:00 37.4 107 21 145/76 (99) 95 Room Air 08/16/19 21:20 96 Room Air 08/16/19 20:08 37.0 96 20 131/71 (91) 96 Room Air 08/16/19 16:30 36.8 83 20 166/84 (111) 97 Room Air 08/16/19 16:12 96 Room Air 08/16/19 12:00 36.4 73 18 124/64 (84) 96 Room Air 08/16/19 10:03 98 Room Air I & O 08/17/19 07:00 Intake Total 4330 ml Output Total 3650 ml Balance 680 ml Capillary Refill : Less Than 3 Seconds General Appearance: No Apparent Distress, WD/WN HEENT: Normal ENT Inspection Neck: Full Range of Motion, Normal Inspection Respiratory: Lungs Clear, No Accessory Muscle Use, No Respiratory Distress Cardiovascular: Regular Rate, Rhythm, No Murmur Gastrointestinal: non tender, soft Results Lab Laboratory Tests 08/17/19 05:42 Laboratory Tests 08/16/19 10:25: Lactic Acid Level 1.61 08/16/19 13:10: Urine Color YELLOW, Urine Clarity CLEAR, Urine pH 8.0, Urine Specific [place] 1.015L, Urine Protein NEGATIVE, Urine Glucose (UA) NEGATIVE, Urine Ketones NEGATIVE, Urine Nitrite NEGATIVE, Urine Bilirubin NEGATIVE, Urine Urobilinogen 0.2, Urine Leukocyte Esterase NEGATIVE, Urine RBC (Auto) NEGATIVE, Urine RBC RARE, Urine WBC 2-5, Urine Crystals NONE, Urine Bacteria NEGATIVE, Urine Casts NONE, Urine Mucus NEGATIVE, Urine Culture Indicated NO, Stool Occult Blood Immunoassay NEGATIVE 08/17/19 05:42: White Blood Count 5.6, Red Blood Count 3.60L, Hemoglobin 11.3L, Hematocrit 35L, Mean Corpuscular Volume 96, Mean Corpuscular Hemoglobin 31, Mean Corpuscular Hemoglobin Concent 33, Red Cell Distribution Width 14.2, Platelet Count 121L, Mean Platelet Volume 11.0H, Neutrophils (%) (Auto) 68, Lymphocytes (%) (Auto) 20, Monocytes (%) (Auto) 9, Eosinophils (%) (Auto) 2, Basophils (%) (Auto) 0, Neutrophils # (Auto) 3.9, Lymphocytes # (Auto) 1.2, Monocytes # (Auto) 0.5, E osinophils # (Auto) 0.1, Basophils # (Auto) 0.0, Sodium Level 139, Potassium Level 3.7, Chloride Level 108H, Carbon Dioxide Level 23, Anion Gap 8, Blood Urea Nitrogen 5L, Creatinine 0.73, Estimat Glomerular Filtration Rate > 60, BUN/Creatinine Ratio 7, Glucose Level 116H, Calcium Level 8.6, Corrected Calcium 9.1, Total Bilirubin 0.4, Aspartate Amino Transf (AST/SGOT) 17, Alanine Aminotransferase (ALT/SGPT) 18, Alkaline Phosphatase 59, Total Protein 6.1L, Albumin 3.4 Microbiology 08/15/19 Gram Stain, Resulted Pending 08/15/19 Sputum Culture - Preliminary, Resulted Gram Negative Darnell 08/15/19 Blood Culture - Preliminary, Resulted No growth Assessment/Plan Assessment/Plan Assess & Plan/Chief Complaint Right lower lobe pneumonia. Sepsis. Patient improving. Elevated lactic acid. . 08/17/2019. Right lower lobe pneumonia. Lactic acid normal. Patient not short of breath and feeling better Clinical Quality Measures DVT/VTE Risk/Contraindication: Risk Factor Score Per Nursin RFS Level Per Nursing on Admit: 4+=Very High BERTRAND ROQUE DO Aug 17, 2019 08:38
[2019-08-17] MEDS: cefTRIAXone 1,000 MG/SWFI 10 ML IV PUSH IV SCH ×2 (08:49)
[2019-08-17] MEDS: meTOprolol TARTRATE 50 MG (LOPRESSOR) TAB PO SCH (08:50)
[2019-08-17] MEDS ORDERED: AZITHROMYCIN 250 MG TAB (ZITHROMAX) PO SCH (09:00)
--- NOTE | 2019-08-17 11:31 | Physician Query Clarification ---
PQ-Further Specificity Admission/Discharge Admission Date: Aug 15, 2019 at 06:50 Discharge Date: The medical record reflects the following clinical scenario: History/Risk Factors: Sepsis Pneumonia Clinical Findings: T38.9, P 128, Resp 20, pulse ox 97%, BP 161/107, hypoxia. Treatment: Nasal cannula 3-[address] Metz listed both acute respiratory distress with hypoxia and acute respiratory failure with hypoxia in his H&P. Question: Can you further specify Acute respiratory condition per the clinical indicators above? Please document a response in the Progress Notes or Discharge Summary. 1. Acute respiratory failure with hypoxia. 2. Acute respiratory distress with hypoxia. 3. Other, with explanation of the clinical findings. 4. Clinically undetermined, no explanation for the clinical findings. PHYSICIAN RESPONSE Can you specify per above: 2 Please remember a lack of response to the above will prompt a phone page by CDI/Coding staff. In responding to this query, please exercise your independent professional judgment. The purpose of this communication is to more accurately reflect the complexity of your patients condition. The fact that a question is asked does not imply that any particular answer is desired or expected. Thank you for your timely response to this clarification. Requestors name: Sonya Hartman [facility] Phone # ext [phone] or [phone] THIS PHYSICIAN QUERY FORM IS A PERMANENT PART OF THE MEDICAL RECORD SONYA HARTMAN Aug 17, 2019 11:31 BERTRAND ROQUE DO Aug 18, 2019 06:11
--- NOTE | 2019-08-17 11:39 | Physician Query Clarification ---
PQ-Link Manifestation-Etiology Admission/Discharge Admission Date: Aug 15, 2019 at 06:50 Discharge Date: The medical record reflects the following clinical scenario: History/Risk Factors: Sepsis Pneumonia Acute respiratory distress/failure with hypoxia. Clinical Findings: T38.9, P 128, Resp 20, Pulse ox 97% BP 161/107, lactic acid 3.38. WBC 10.2. Treatment: Nasal cannula 3-4 L oxygen to keep sats greater than 92%, Rocephin 1 g IV and Azithromycin 500mg IV. Question: Can you specify if the acute respiratory distress/failure with hypoxia is due to/associated with sepsis? Please document a response in the Progress Note or Discharge Summary. 1. Yes - [Manifestation] is due to/associated with [etiology]. 2. No - [Manifestation] is not due to/associated with [etiology]. 3. Other, with explanation of the clinical findings. 4. Clinically undetermined, no explanation for the clinical findings. PHYSICIAN RESPONSE Manifestation due to/assoic: Yes Please remember a lack of response to the above will prompt a phone page by CDI/Coding staff. In responding to this query, please exercise your independent professional judgment. The purpose of this communication is to more accurately reflect the complexity of your patients condition. The fact that a question is asked does not imply that any particular answer is desired or expected. Thank you for your timely response to this clarification. Requestors name: Sonya Hartman [facility] Phone # ext [phone] or [phone] THIS PHYSICIAN QUERY FORM IS A PERMANENT PART OF THE MEDICAL RECORD SONYA HARTMAN Aug 17, 2019 11:39 BERTRAND ROQUE DO Aug 18, 2019 06:12
[2019-08-17] MEDS: ENOXAPARIN 40 MG/0.4 ML (LOVENOX) SYR SC SCH (12:00)
[2019-08-17 12:02] VITALS: BP 179/99
[2019-08-17] MEDS ORDERED: CEFD300C3 PO (14:21)
[2019-08-17 15:00] VITALS: BP 179/99
--- NOTE | 2019-08-17 15:23 | NUR ---
CM/SS follow up with the patient. The patient and his significant other were present in the room. They both stated they were doing well today and did not need any thing as of now. The patients significant other asked if the patient would need breathing treatments if this SS could help arrange for medical supplies. CM/SS stated that she would help with the set up of medical equipment if needed. Will continue to follow.
--- NOTE | 2019-08-18 06:52 | Discharge Summary ---
Diagnosis/Chief Complaint Date of Admission Aug 15, 2019 at 06:50 Date of Discharge Aug 17, 2019 at 15:00 Discharge Time: 06:49 Discharge Diagnosis Acute respiratory distress with hypoxia or Anxiety. Essential hypertension. Pneumonia right basilar infiltrate Personal history of nicotine dependence previously. Hyperlipidemia. Elevated lactic acid. Sepsis. Anemia. Short of breath Discharge Summary Consultations Pulmonology Discharge Physical Examination Allergies: Coded Allergies: No Known Drug Allergies (Unverified , 05/16/17) Vitals & I&Os Vital Signs Date Time Temp Pulse Resp B/P (MAP) Pulse Ox O2 Delivery O2 Flow Rate FiO2 08/17/19 15:00 37.0 80 18 179/99 96 Room Air 08/17/19 08:06 4.00 Hospital Course Patient did better. Patient not short of breath on discharge. Lactic acid went back to normal Labs (last 24 hrs) Laboratory Tests 08/15/19 04:40: White Blood Count 10.2, Red Blood Count 4.51, Hemoglobin 14.1, Hematocrit 42, Mean Corpuscular Volume 94, Mean Corpuscular Hemoglobin 31, Mean Corpuscular Hemoglobin Concent 33, Red Cell Distribution Width 14.0, Platelet Count 139, Mean Platelet Volume 11.4H, Neutrophils (%) (Auto) 81H, Lymphocytes (%) (Auto) 10L, Monocytes (%) (Auto) 7, Eosinophils (%) (Auto) 2, Basophils (%) (Auto) 0, Neutrophils # (Auto) 8.2H, Lymphocytes # (Auto) 1.1, Monocytes # (Auto) 0.7, Eosinophils # (Auto) 0.2, Basophils # (Auto) 0.0, Prothrombin Time 13.6, INR Comment 1.0, Activated Partial Thromboplast Time 27, Sodium Level 141, Potassium Level 3.8, Chloride Level 105, Carbon Dioxide Level 25, Anion Gap 11, Blood Urea Nitrogen 18, Creatinine 0.95, Estimat Glomerular Filtration Rate > 60, BUN/Creatinine Ratio 19, Glucose Level 149H, Lactic Acid Level 3.33*H, Calcium Level 9.0, Corrected Calcium 9.1, Total Bilirubin 0.6, Aspartate Amino Transf (AST/SGOT) 16, Alanine Aminotransferase (ALT/SGPT) 22, Alkaline Phosphatase 95, Total Protein 7.0, Albumin 3.9 08/15/19 07:06: Lactic Acid Level 2.23*H 08/15/19 09:14: Lactic Acid Level 2.37*H 08/15/19 11:18: Lactic Acid Level 2.69*H 08/16/19 07:44: White Blood Count 6.6, Red Blood Count 4.12L, Hemoglobin 12.8L, Hematocrit 39L, Mean Corpuscular Volume 95, Mean Corpuscular Hemoglobin 31, Mean Corpuscular Hemoglobin Concent 33, Red Cell Distribution Width 14.3, Platelet Count 129L, Mean Platelet Volume 11.2H, Neutrophils (%) (Auto) 75, Lymphocytes (%) (Auto) 15, Monocytes (%) (Auto) 8, Eosinophils (%) (Auto) 1, Basophils (%) (Auto) 0, Neutrophils # (Auto) 4.9, Lymphocytes # (Auto) 1.0, Monocytes # (Auto) 0.5, Eosinophils # (Auto) 0.1, Basophils # (Auto) 0.0, Sodium Level 139, Potassium Level 3.8, Chloride Level 107, Carbon Dioxide Level 24, Anion Gap 8, Blood Urea Nitrogen 9, Creatinine 0.80, Estimat Glomerular Filtration Rate > 60, BUN/Creatinine Ratio 11, Glucose Level 126H, Calcium Level 9.0, Corrected Calcium 9.2, Phosphorus Level 2.4, Magnesium Level 1.6, Total Bilirubin 0.7, Aspartate Amino Transf (AST/SGOT) 16, Alanine Aminotransferase (ALT/SGPT) 16, Alkaline Phosphatase 72, Total Protein 6.8, Albumin 3.8 08/16/19 08:20: Lactic Acid Level 3.38*H 08/16/19 10:25: Lactic Acid Level 1.61 08/16/19 13:10: Urine Color YELLOW, Urine Clarity CLEAR, Urine pH 8.0, Urine Specific Eva 1.015L, Urine Protein NEGATIVE, Urine Glucose (UA) NEGATIVE, Urine Ketones NEGATIVE, Urine Nitrite NEGATIVE, Urine Bilirubin NEGATIVE, Urine Urobilinogen 0.2, Urine Leukocyte Esterase NEGATIVE, Urine RBC (Auto) NEGATIVE, Urine RBC RARE, Urine WBC 2-5, Urine Crystals NONE, Urine Bacteria NEGATIVE, Urine Casts NONE, Urine Mucus NEGATIVE, Urine Culture Indicated NO, Stool Occult Blood Immunoassay NEGATIVE 08/17/19 05:42: White Blood Count 5.6, Red Blood Count 3.60L, Hemoglobin 11.3L, Hematocrit 35L, Mean Corpuscular Volume 96, Mean Corpuscular Hemoglobin 31, Mean Corpuscular Hemoglobin Concent 33, Red Cell Distribution Width 14.2, Platelet Count 121L, Mean Platelet Volume 11.0H, Neutrophils (%) (Auto) 68, Lymphocytes (%) (Auto) 20, Monocytes (%) (Auto) 9, Eosinophils (%) (Auto) 2, Basophils (%) (Auto) 0, Neutrophils # (Auto) 3.9, Lymphocytes # (Auto) 1.2, Monocytes # (Auto) 0.5, Eosinophils # (Auto) 0.1, Basophils # (Auto) 0.0, Sodium Level 139, Potassium Level 3.7, Chloride Level 108H, Carbon Dioxide Level 23, Anion Gap 8, Blood Urea Nitrogen 5L, Creatinine 0.73, Estimat Glomerular Filtration Rate > 60, BUN/Creatinine Ratio 7, Glucose Level 116H, Calcium Level 8.6, Corrected Calcium 9.1, Total Bilirubin 0.4, Aspartate Amino Transf (AST/SGOT) 17, Alanine Aminotransferase (ALT/SGPT) 18, Alkaline Phosphatase 59, Total Protein 6.1L, Albumin 3.4 08/17/19 11:18: Glucometer 83 Microbiology 08/15/19 Urine Culture - Final, Complete NO GROWTH 08/15/19 Gram Stain - Final, Resulted 08/15/19 Sputum Culture - Preliminary, Resulted Gram Negative Darnell 08/15/19 Blood Culture - Preliminary, Resulted No growth Laboratory Tests 08/15/19 04:40 08/16/19 07:44 08/17/19 05:42 Pending Labs Microbiology Date/Time Source Procedure Growth Status 08/15/19 13:10 Urine Clean Catch Urine Culture - Final NO GROWTH Complete 08/15/19 13:10 Sputum Induced Gram Stain - Final Resulted 08/15/19 13:10 Sputum Culture - Preliminary Gram Negative Darnell Resulted 08/15/19 05:13 Peripheral Lt Ac Blood Culture - Preliminary No growth Resulted 08/15/19 04:43 Peripheral Rt Ac Blood Culture - Preliminary No growth Resulted 08/15/19 04:40 Nasopharynx Influenza Types A,B Antigen (ANUP) - Final Complete Laboratory Tests 08/15/19 04:40: White Blood Count 10.2, Red Blood Count 4.51, Hemoglobin 14.1, Hematocrit 42, Mean Corpuscular Volume 94, Mean Corpuscular Hemoglobin 31, Mean Corpuscular Hemoglobin Concent 33, Red Cell Distribution Width 14.0, Platelet Count 139, Mean Platelet Volume 11.4, Neutrophils (%) (Auto) 81, Lymphocytes (%) (Auto) 10, Monocytes (%) (Auto) 7, Eosinophils (%) (Auto) 2, Basophils (%) (Auto) 0, Neutrophils # (Auto) 8.2, Lymphocytes # (Auto) 1.1, Monocytes # (Auto) 0.7, Eosinophils # (Auto) 0.2, Basophils # (Auto) 0.0, Prothrombin Time 13.6, INR Comment 1.0, Activated Partial Thromboplast Time 27, Sodium Level 141, Potassium Level 3.8, Chloride Level 105, Carbon Dioxide Level 25, Anion Gap 11, Blood Urea Nitrogen 18, Creatinine 0.95, Estimat Glomerular Filtration Rate > 60, BUN/Creatinine Ratio 19, Glucose Level 149, Lactic Acid Level 3.33, Calcium Level 9.0, Corrected Calcium 9.1, Total Bilirubin 0.6, Aspartate Amino Transf (AST/SGOT) 16, Alanine Aminotransferase (ALT/SGPT) 22, Alkaline Phosphatase 95, Total Protein 7.0, Albumin 3.9 08/15/19 07:06: Lactic Acid Level 2.23 08/15/19 09:14: Lactic Acid Level 2.37 08/15/19 11:18: Lactic Acid Level 2.69 08/16/19 07:44: White Blood Count 6.6, Red Blood Count 4.12, Hemoglobin 12.8, Hematocrit 39, Mean Corpuscular Volume 95, Mean Corpuscular Hemoglobin 31, Mean Corpuscular Hemoglobin Concent 33, Red Cell Distribution Width 14.3, Platelet Count 129, Mean Platelet Volume 11.2, Neutrophils (%) (Auto) 75, Lymphocytes (%) (Auto) 15, Monocytes (%) (Auto) 8, Eosinophils (%) (Auto) 1, Basophils (%) (Auto) 0, Neutrophils # (Auto) 4.9, Lymphocytes # (Auto) 1.0, Monocytes # (Auto) 0.5, Eosinophils # (Auto) 0.1, Basophils # (Auto) 0.0, Sodium Level 139, Potassium Level 3.8, Chloride Level 107, Carbon Dioxide Level 24, Anion Gap 8, Blood Urea Nitrogen 9, Creatinine 0.80, Estimat Glomerular Filtration Rate > 60, BUN/Cre atinine Ratio 11, Glucose Level 126, Calcium Level 9.0, Corrected Calcium 9.2, Phosphorus Level 2.4, Magnesium Level 1.6, Total Bilirubin 0.7, Aspartate Amino Transf (AST/SGOT) 16, Alanine Aminotransferase (ALT/SGPT) 16, Alkaline Phosphatase 72, Total Protein 6.8, Albumin 3.8 08/16/19 08:20: Lactic Acid Level 3.38 08/16/19 10:25: Lactic Acid Level 1.61 08/16/19 13:10: Urine Color YELLOW, Urine Clarity CLEAR, Urine pH 8.0, Urine Specific Eva 1.015, Urine Protein NEGATIVE, Urine Glucose (UA) NEGATIVE, Urine Ketones NEGATIVE, Urine Nitrite NEGATIVE, Urine Bilirubin NEGATIVE, Urine Urobilinogen 0.2, Urine Leukocyte Esterase NEGATIVE, Urine RBC (Auto) NEGATIVE, Urine RBC RARE, Urine WBC 2-5, Urine Crystals NONE, Urine Bacteria NEGATIVE, Urine Casts NONE, Urine Mucus NEGATIVE, Urine Culture Indicated NO, Stool Occult Blood Immunoassay NEGATIVE 08/17/19 05:42: White Blood Count 5.6, Red Blood Count 3.60, Hemoglobin 11.3, Hematocrit 35, Mean Corpuscular Volume 96, Mean Corpuscular Hemoglobin 31, Mean Corpuscular Hemoglobin Concent 33, Red Cell Distribution Width 14.2, Platelet Count 121, Mean Platelet Volume 11.0, Neutrophils (%) (Auto) 68, Lymphocytes (%) (Auto) 20, Monocytes (%) (Auto) 9, Eosinophils (%) (Auto) 2, Basophils (%) (Auto) 0, Neutrophils # (Auto) 3.9, Lymphocytes # (Auto) 1.2, Monocytes # (Auto) 0.5, Eosinophils # (Auto) 0.1, Basophils # (Auto) 0.0, Sodium Level 139, Potassium Level 3.7, Chloride Level 108, Carbon Dioxide Level 23, Anion Gap 8, Blood Urea Nitrogen 5, Creatinine 0.73, Estimat Glomerular Filtration Rate > 60, BUN/Creatinine Ratio 7, Glucose Level 116, Calcium Level 8.6, Corrected Calcium 9.1, Total Bilirubin 0.4, Aspartate Amino Transf (AST/SGOT) 17, Alanine Aminot ransferase (ALT/SGPT) 18, Alkaline Phosphatase 59, Total Protein 6.1, Albumin 3.4 08/17/19 11:18: Glucometer 83 Discussion & Recommendations To follow up in office Discharge Home Medications: Active Scripts Active Cefdinir 300 Mg Capsule 300 Mg PO BID 5 Days Reported Escitalopram Oxalate 10 Mg Tablet 10 Mg PO DAILY Pantoprazole Sodium 40 Mg Tablet.dr 40 Mg PO DAILY Metoprolol Tartrate 50 Mg Tablet 50 Mg PO DAILY Simvastatin 40 Mg Tablet 40 Mg PO HS Instructions to patient/family Please see electronic discharge instructions given to patient. Clinical Quality Measures DVT/VTE Risk/Contraindication: Risk Factor Score Per Nursin RFS Level Per Nursing on Admit: 4+=Very High BERTRAND ROQUE DO Aug 18, 2019 06:52
[2019-08-18] MEDS ORDERED: PANTOPRAZOLE 40 MG (PROTONIX) TAB PO SCH (09:00)
== END 2019-08-17 15:00 | disposition home or self-care (01) | DRG 871 ==
LOC: EDUNIT# 04:37 → ER 04:39 → 4TH 06:50
PROVIDERS: ADMIT Family Medicine; ATTEND Family Medicine
DX: A41.9 Sepsis, unspecified organism (principal); J18.9 Pneumonia, unspecified organism; E87.2 Acidosis; J90 Pleural effusion, not elsewhere classified; R06.03 Acute respiratory distress; R09.02 Hypoxemia; I10 Essential (primary) hypertension; E78.00 Pure hypercholesterolemia, unspecified; E78.5 Hyperlipidemia, unspecified; D64.9 Anemia, unspecified; K21.9 Gastro-esophageal reflux disease without esophagitis; F41.9 Anxiety disorder, unspecified; Z87.891 Personal history of nicotine dependence
CPT/HCPCS: 36415; 71045; 71046; 71260; 74177; 80053; 81000; 82274; 82962; 83605; 83735; 84100; 85025; 85610; 85730; 87040; 87070; 87088; 87205; 87804; 93005; 93041; 94640; 94760

== ENCOUNTER → 2019-12-29 | Outpatient (CLI) | payer MEDICARE, OTHER ==
[~2019-12-29] MED LIST changes: +CEFD300C3 PO; +RT-ALBUTEROL SULF 2.5 MG/3 ML PRE-MIX VIAL INH ONE
--- NOTE | 2019-12-29 13:00 | Diagnostic Imaging Report ---
INDICATION: ALLERGIC rhinitis, shortness of air on exertion.. TECHNIQUE: Two view chest 12:56 PM CORRELATION STUDY: None FINDINGS: The heart size, mediastinal configuration and pulmonary vasculature are within normal limits. The lungs are clear with no consolidating infiltrate. There is no significant pleural effusion or pneumothorax. Visualized osseous structures are unremarkable. IMPRESSION: 1. Negative for acute abnormality of the chest. Dictated by: Dictated on workstation # [id number]
== END ==
LOC: RT 12:32
PROVIDERS: ATTEND Nurse Practitioner Family
DX: J18.9 Pneumonia, unspecified organism (principal); J30.9 Allergic rhinitis, unspecified; R91.8 Other nonspecific abnormal finding of lung field; Z72.0 Tobacco use
CPT/HCPCS: 71046; 94060; 94726; 94729

== ENCOUNTER → 2020-10-23 | Outpatient (CLI) | payer MEDICARE, OTHER ==
[~2020-10-23] MED LIST changes: +ESCI-2 PO; -ESCI10TA55 PO; -PANT40TA3 PO; +PANT40TA52 PO; -RT-ALBUTEROL SULF 2.5 MG/3 ML PRE-MIX VIAL INH ONE; +SERT-413 PO; -SERT50TA9 PO
--- NOTE | 2020-10-23 17:43 | Diagnostic Imaging Report ---
CT Lung Screening INDICATION: 53 pack year smoking history, cessation 5 years ago, for low-dose CT screening TECHNIQUE: Noncontrast, low-dose CT imaging performed according to the lung cancer screening protocol. Auto Exposure Controls were utilize during the CT exam to meet ALARA standards for radiation dose reduction. COMPARISON:08/16/2019 FINDINGS:Thin-walled cyst in the right upper lobe, unchanged, without soft tissue component measuring 1 cm. No lung mass or suspicious pulmonary nodule. There were no findings of lung cancer. No thoracic lymphadenopathy. No pneumonia. No effusion. There are coronary artery atherosclerotic vascular calcifications. The visualized upper abdomen shows mild scattered hepatosplenic calcified granulomata. No acute chest wall pathology. IMPRESSION:No findings of active lung cancer. LUNG-RADS CATEGORY:Category 1 MODIFIER: None OTHER SIGNIFICANT FINDINGS:Stable right upper lobe lung cyst, benign granulomatous disease and coronary artery atherosclerotic calcifications. Dictated by: Dictated on workstation # [id number]
== END ==
LOC: RAD 13:57
PROVIDERS: ATTEND Nurse Practitioner Family
DX: Z12.2 Encounter for screening for malignant neoplasm of respiratory organs (principal); J98.4 Other disorders of lung; I25.10 Atherosclerotic heart disease of native coronary artery without angina pectoris; Z87.891 Personal history of nicotine dependence
CPT/HCPCS: 71271

== ENCOUNTER → 2022-07-03 | Outpatient (CLI) | payer MEDICARE, OTHER ==
--- NOTE | 2022-07-03 15:48 | Diagnostic Imaging Report ---
EXAMINATION: Right thumb radiographs, 3 views. COMPARISON: None. HISTORY: 72-year-old male, right hand and thumb pain. Fall. FINDINGS: There is a healed prior fracture deformity of the fifth metacarpal. There is no identified acute fracture. There is no subluxation or dislocation. There is no radiopaque foreign body. IMPRESSION: No identified acute bony abnormality of the right thumb. Dictated by: Dictated on workstation # [id number]
--- NOTE | 2022-07-03 15:49 | Diagnostic Imaging Report ---
EXAMINATION: Right hand radiographs, 3 views. COMPARISON: None. HISTORY: 72-year-old male, right hand pain after fall. FINDINGS: There is a deformity of the fifth metacarpal likely relating to healed prior fracture. There is no identified acute fracture. There is no identified radiopaque foreign body. The joint spaces appear well-preserved. IMPRESSION: 1. No acute bony abnormality of the right hand. Faxed to [facility] at 3:50 p.m. by lelia. Dictated by: Dictated on workstation # [id number]
== END ==
LOC: RAD 14:10
PROVIDERS: ATTEND Family Medicine
DX: M79.641 Pain in right hand (principal)
CPT/HCPCS: 73130; 73140